=== PATIENT | female | born 1960 | race Two or more races ===

== ENCOUNTER → 2021-01-14 | Outpatient (CLI) | payer OTHER ==
--- NOTE | 2021-01-14 16:36 | RAD ---
MG BILAT SCREEN+JYOTI 01/14/2021 2:19 PM INDICATION: Asymptomatic screening mammogram. COMPARISON: 12/20/2018 TECHNIQUE: 3D tomosynthesis was performed in CC and MLO projections. 2D views were obtained from the 3D data. CAD was utilized as needed. FINDINGS: Breast density: Category B: There are scattered areas of fibroglandular density. Right breast: There are no suspicious microcalcifications, masses or areas of architectural distortio n. Left breast: In the upper outer left breast at middle depth, 3 to 4 cm from the nipple there is a mas s appears circumscribed, new from the prior examination. Further evaluation with targeted ultrasound of left breast is recommended. IMPRESSION: 1. Incomplete left mammogram. Additional imaging is recommended as above. 2. Negative right mammogram. BI-RADS category: 0; Incomplete Recommendations: Recommend additional imaging for which the patient will need to be called back. Electronically signed by: Perla Payne MD (01/14/2021 4:34 PM) [id number]
== END ==
LOC: MAMMO 13:46
PROVIDERS: ATTEND Nurse Practitioner Family
DX: Z12.31 Encounter for screening mammogram for malignant neoplasm of breast (principal)
CPT/HCPCS: 77063; 77067

== ENCOUNTER → 2021-01-23 | Outpatient (CLI) | payer OTHER ==
--- NOTE | 2021-01-23 08:38 | RAD ---
EXAM: US BREAST LT 01/23/2021 7:56 AM CLINICAL INDICATION: Recalled from screening mammogram for left breast mass COMPARISON: Screening mammogram 01/14/2021 TECHNIQUE: Grayscale and color Doppler ultrasound images of the left breast in area of concern. FINDINGS: At 2:00, 4 cm the nipple there is a 4 mm ovoid hypoechoic circumscribed mass with posterio r acoustic enhancement, likely a complicated cyst or clustered microcysts. No adenopathy in the left axilla. IMPRESSION: Probably benign 4 mm left breast mass, likely a complicated cyst or clustered microcysts . Recommend 6 month follow-up ultrasound to ensure stability. BI-RADS category 3: Probably benign. Electronically signed by: Consuelo Cardenas MD (01/23/2021 8:35 AM) [id number]
== END ==
LOC: US 07:52
PROVIDERS: ATTEND Nurse Practitioner Family
DX: N63.21 Unspecified lump in the left breast, upper outer quadrant (principal)
CPT/HCPCS: 76641